=== PATIENT | female | born 1995 | race Caucasian/White ===

== ENCOUNTER → 2016-12-05 | Outpatient (CLI) | payer BC ==
[~2016-12-05] MED LIST: CLX20 PO; PRENTAB26 PO
== END | disposition home or self-care (01) ==
LOC: C.PAPS 11:46
PROVIDERS: ATTEND Obstetrics & Gynecology
DX: Z11.3 Encounter for screening for infections with a predominantly sexual mode of transmission (principal)

== ENCOUNTER → 2016-12-05 | Outpatient (CLI) | payer BC, OTHER ==
[2016-12-09 01:33] LABS: CHLAMYDIA TRACH RNA*** NOT DETECTED (NOT DETECTED); GC (NEIS GONORRHOEAE)RNA** NOT DETECTED (NOT DETECTED)
== END | disposition home or self-care (01) ==
LOC: C.LABSPEC 12:54
PROVIDERS: ATTEND Obstetrics & Gynecology
DX: Z11.3 Encounter for screening for infections with a predominantly sexual mode of transmission (principal)

== ENCOUNTER 2021-01-06 04:17 | Inpatient (IN) ==
[2021-01-06] MEDS ORDERED: LACTATED RINGER'S 1,000 ML IV PRN (04:52)
[2021-01-06] MEDS ORDERED: OXYTOCIN 30 UNITS/500 ML BAG IV PRN ×2 (04:52→05:40)
[2021-01-06] MEDS ORDERED: SODIUM CHLORIDE 0.9% INJ 10 ML VIAL ONE (05:13)
[2021-01-06] MEDS ORDERED: BUPIVACAINE 0.25% 30 ML VIAL ONE (05:13)
[2021-01-06] MEDS ORDERED: fentaNYL 2MCG/ML ROPIVACAINE 1.25MG/ML 100 ML BAG EPI ONE (05:13)
[2021-01-06] MEDS ORDERED: fentaNYL citrate 100 MCG/2 ML VIAL ONE (05:13)
[2021-01-06] MEDS ORDERED: ePHEDrine sulfate 50 MG/ML AMP ONE (05:13)
[2021-01-06] MEDS ORDERED: ERYTHROMYCIN OP OINT 1 GM PKT ONE (05:14)
[2021-01-06] MEDS ORDERED: oxyCODONE/ACETAMINOPHEN 5mg/325mg TAB PO PRN (05:40)
[2021-01-06] MEDS ORDERED: bisacodyL 10 MG SUPP PR PRN (05:40)
[2021-01-06] MEDS ORDERED: BENZOCAINE 20% AER SPR 82.5 GM CAN EXT PRN (05:40)
[2021-01-06] MEDS ORDERED: SUPERCREAM 0.870% 15 GM JAR EXT PRN (05:40)
[2021-01-06] MEDS ORDERED: ACETAMINOPHEN 325 MG TAB PO PRN (05:40)
[2021-01-06] MEDS ORDERED: HYDROCORTISONE ACETATE 25 MG SUPP PR PRN (05:40)
[2021-01-06] MEDS ORDERED: DIPHTHERIA/TETANUS/PERTUSSIS 0.5 ML SYR/VIAL IM ONE (05:40)
--- NOTE | 2021-01-06 06:29 | Delivery Summary ---
Vaginal Delivery Summary Date of Service January 06, 2021 Patient is a 25-year-old 3 para 1-0-1-1 white female who presented at 40 weeks in active labor. On arrival in labor and delivery her cervix was 7 cm dilated with bulging membranes. Membranes were ruptured for moderate meconium stained fluid. She progressed quickly to full dilation and pushed effectively over an intact perineum to deliver a viable female infant in the vertex presentation. There was a tight nuchal cord which was cut and clamped prior to delivering the rest of the infant. The rest of the delivered easily and was placed on the mother's abdomen for further attention and drying. At the nasopharynx were suctioned after delivery of the . Placenta was expressed intact with a three-vessel cord after obtaining cord blood sample. Bilateral abrasions on the labia were not bleeding and therefore not repaired. bleeding was controlled with dilute Pitocin. Estimated blood loss is 250 cc. Mother and infant were doing well after delivery. This was an unmedicated . Vaginal Delivery Summary [facility] Vaginal Delivery Charge Vaginal Delivery Codes: 19599 global code for the antepartum, delivery, and post- Delivery Type Details: [facility]
[2021-01-06 06:32] LABS: Hemoglobin 12.2 g/dL (12.0-16.0); Mean Corpuscular Hemoglobin 29.9 pg (25-34); Mean Corpuscular Hgb Conc 33.9 g/dL (32-36); Mean Corpuscular Volume 88.2 fL (80-100); Mean Platelet Volume 10.6 fL (7.4-10.4); Platelet Count 188 K/uL (130-400); RDW Coefficient of Variation 13.4 % (11.5-14.5); RDW Standard Deviation 43.5 fL (36.4-46.3); Red Blood Count 4.08 M/uL (4.2-5.4); White Blood Count 12.99 K/uL (4.8-10.8)
[2021-01-06] MEDS: IBUPROFEN 600 MG TAB PO PRN ×4 (06:46→21:16)
[2021-01-06] MEDS: PRENATAL VITAMIN 1 TAB PO SCH (07:56)
[2021-01-06] MEDS: DOCUSATE SODIUM 100 MG CAP PO SCH ×2 (07:56→21:15)
[2021-01-07] MEDS: IBUPROFEN 600 MG TAB PO PRN ×3 (01:25→08:47)
[2021-01-07 06:22] LABS: Hematocrit (blood only) 33.5 % (37-47); Hemoglobin 11.2 g/dL (12.0-16.0); Mean Corpuscular Hemoglobin 29.7 pg (25-34); Mean Corpuscular Hgb Conc 33.4 g/dL (32-36); Mean Corpuscular Volume 88.9 fL (80-100); Mean Platelet Volume 10.5 fL (7.4-10.4); Platelet Count 205 K/uL (130-400); RDW Coefficient of Variation 13.6 % (11.5-14.5); RDW Standard Deviation 43.9 fL (36.4-46.3); Red Blood Count 3.77 M/uL (4.2-5.4)
--- NOTE | 2021-01-07 06:42 | Obstetrical Progress Note ---
Date of Service <Dhaval Boone MD - Last Filed: 01/07/21 07:12> January 07, 2021 Assessment & Plan <Dhaval Boone MD - Last Filed: 01/07/21 07:12> (1) state: 25 y/o s/p at 40w0d on 0501/06/21, PPD1. Mild bleeding controlled w/ dilute pitocin. ebl 250cc. O pos. rubella immune. - vitals reviewed, stable - meeting milestones - w/o issues - routine care - dispo home today. instructions reviewed (by attending) w/ patient - 6 wk f/u Subjective <Dhaval Boone MD - Last Filed: 01/07/21 07:12> Ambulation: ambulating normally Voiding: no voiding problems Passing Gas:: Yes Diet Tolerance:: regular diet Lochia:: Moderate Feeding Type:: breast feeding (no issues) Current Pain Level(1-10): 4 4/10 cramping, tolerable. Prefers home today. Review of Systems Denies fever, chills, sweats Denies shortness of breath, chest pain, palpitations. Denies breast pain. Denies dysuria. Denies headache or changes in vision. Denies nausea/vomiting. Denies numbness, tingling, weakness. Mood is ok. No calf pain. Physical Exam <Dhaval Boone MD - Last Filed: 01/07/21 07:12> General: Alert, oriented. No acute distress. Cardiac: Regular rate and rhythm, no murmurs/rubs/gallops. Respiratory: Clear to auscultation bilaterally, no wheezes/rales/rhonchi. No respiratory distress. Abdomen: , soft, nontender. Uterus: Uterine fundus firm, palpable 1cm below umbilicus. Lower Extremities: No lower extremity edema or swelling. Puffy appearance. No deep calf pain. Damián's negative bilaterally. Results & Data ([facility]) <Dhaval Boone MD - Last Filed: 01/07/21 07:12> Vital Signs (Past 12 Hours) Vital Signs Temp Pulse Resp BP Pulse Ox 01/07/21 03:45 36.9 C 86 16 106/68 97 01/06/21 23:15 36.9 C 79 17 117/75 97 01/06/21 19:00 36.4 C L 85 20 111/78 Medications Administered <Judith Cartagena MD - Last Filed: 01/07/21 07:12> Co-Signing Physician Notes Resident Physician Supervision Note: I interviewed and examined the patient. Discussed with Dr. Boone and agree with findings and plan as documented in the note. Any exceptions or clarifications are listed here: None Documented By: Judith Cartagena MD, FACOG Resident Activity Tracking <Dhaval Boone MD - Last Filed: 01/07/21 07:12> Resident Involvement: Resident Care Provided Care Provided: OB Delivery
[2021-01-07] MEDS: DOCUSATE SODIUM 100 MG CAP PO SCH (08:47)
[2021-01-07] MEDS: PRENATAL VITAMIN 1 TAB PO SCH (08:47)
[2021-01-07] MEDS ORDERED: bisacodyL 5 MG TABEC PO SCH (20:00)
== END 2021-01-07 13:02 | disposition home or self-care (01) | DRG 807 ==
LOC: OPB 04:17 → 4S1 04:19 → 4S2 09:12

== ENCOUNTER 2022-10-09 21:48 | Inpatient (IN) ==
[2022-10-09] MEDS ORDERED: LIDOCAINE 1% LOCAL 20 ML VIAL INFIL PRN (22:07)
[2022-10-09] MEDS ORDERED: LACTATED RINGER'S 1,000 ML IV PRN (22:07)
[2022-10-09] MEDS ORDERED: OXYTOCIN 30 UNITS/500 ML BAG IV PRN (22:07)
[2022-10-09 22:30] LABS: Hematocrit (blood only) 36.5 % (34.1-44.9); Hemoglobin 12.3 g/dl (12.0-16.0); Mean Corpuscular Hemoglobin 28.8 pg (25.0-34.0); Mean Corpuscular Hgb Conc 33.7 g/dL (32.0-36.0); Mean Corpuscular Volume 85.5 fL (80.0-100.0); Mean Platelet Volume 11.1 fL (9.4-12.3); Platelet Count 231 K/uL (130-400); RDW Coefficient of Variation 13.5 % (11.5-14.5); RDW Standard Deviation 42.1 fL (36.4-46.3); Red Blood Count 4.27 M/uL (3.93-5.22); White Blood Count 12.61 K/ul (4.8-10.8)
--- NOTE | 2022-10-09 23:09 | History & Physical Report ---
Date of Service October 09, 2022 Assessment & Plan (1) Encounter for supervision of normal in multigravida: Plan: IUP at term in labor AROM for clear fluid planning unmedicated delivery anticipate vaginal Admission and Anticipated Discharge Date Admission Date: October 09, 2022 History of Present Illness Primary Care Provider: NO PCP Patient is a 27 yo female EDC 10/08/22 who presents with regular contractions. (+) bloody show, (-)SPROM. complicated by GDM- diet controlled. GBS-negative Allergies Allergy/AdvReac Type Severity Reaction Status Date / Time No Known Drug Allergies Allergy Unknown Verified 10/09/22 22:20 Home Medications Medication Instructions Recorded Confirmed Type prenat.vits,tin,aby-ouiv-ccpxj 1 tab PO DAILY 06/05/20 10/09/22 History magnesium PO 02/16/22 09/20/22 History Patient History Medical History Anxiety Cervical cancer screening Chicken pox Depression Depression Encounter for routine pelvic examination History of allergy History of drug overdose exam Screening examination for STD (sexually transmitted disease) Vaginal discharge Surgical History No history of previous surgery Family History Family/Other Neurofibromatosis Aunt Ganglioneuroma Mother Hypertension Heart block Other Diabetes Thyroid disease Twin Denies family history of Ovarian cancer Breast cancer Colorectal cancer Social History Smoking Status: Never smoker Second Hand Exposure: No; Hx Alcohol Use: No Hx Substance Use: No Preferred Language: Peruvian Communication Ability: Effective Theatre Director Required: No Beliefs That Will Affect Care: None marital status: marital status details: Travis Vieira(27) [phone] Current Living Situation: Spouse Current Living Situation Comment: and 2 daughters current occupational status: employed current occupation: [employer] Other Information That Helps Us Care for You: No Feels Safe at Home: Yes Safety Concerns: Feels Safe At This Time Assistive Devices: Glasses Review of Systems All systems reviewed & are unremarkable except as noted in HPI & below Physical Exam Constitutional: WD/WN, vitals as above Psychiatric: A+Ox3, euthymic affect Genitourinary: Manual OB Exam: + cervical dilation 7 cm, + cervical effacement 80%, + station -2 and + amniotic fluid (AROM clear fluid) clear OB Exam Monitor Tracing: + external FHT monitor used, + external uterine monitor used, + category I and + normal FHT variability Results & Data ([facility]) Vital Signs (Past 12 Hours) Vital Signs Temp Pulse Resp BP 10/09/22 22:21 97.7 F 75 18 136/76 10/09/22 22:02 97.7 F 75 18 136/76 Coding Level of Care Code None Diagnoses Encounter for supervision of normal in multigravida Z34.80
[2022-10-09 23:58] LABS: Amphetamines+Metham, Urine Neg (Neg); Barbiturates, Urine Neg (Neg); Benzodiazepine, Urine Neg (Neg); Cocaine, Urine Neg (Neg); MDMA (Ecstacy), Urine Neg (Neg); Methadone, Urine Neg (Neg); Opiate, Urine Neg (Neg); Phencyclidine, Urine Neg (Neg)
[2022-10-10] MEDS ORDERED: HYDROCORTISONE ACETATE 25 MG SUPP PR PRN (01:02)
[2022-10-10] MEDS ORDERED: OXYTOCIN 10 UNITS/ML 10ML VIAL IM ONE (01:02)
[2022-10-10] MEDS ORDERED: bisacodyL 10 MG SUPP PR PRN (01:02)
[2022-10-10] MEDS ORDERED: ACETAMINOPHEN 325 MG TAB PO PRN (01:02)
[2022-10-10] MEDS ORDERED: DIPHTHERIA/TETANUS/PERTUSSIS 0.5 ML SYR/VIAL IM ONE (01:02)
[2022-10-10] MEDS ORDERED: oxyCODONE/ACETAMINOPHEN 5mg/325mg TAB PO PRN (01:02)
[2022-10-10] MEDS ORDERED: BENZOCAINE 20% AER SPR 82.5 GM CAN EXT PRN (01:02)
[2022-10-10] MEDS ORDERED: OXYTOCIN 30 UNITS/500 ML BAG IV PRN (01:02)
--- NOTE | 2022-10-10 01:07 | Delivery Summary ---
Vaginal Delivery Summary Date of Service October 10, 2022 Vaginal Delivery Summary [facility] Patient is a 27-year-old 3 para 2-0-0-2 female who presented in active labor. Membranes were ruptured for clear fluid. She progressed to full dilation with the urge to push. She pushed effectively over intact perineum for delivery of a viable male . After the head was delivered there was a mild shoulder dystocia relieved with hyperflexion of the hips. At this point the rest of the infant delivered easily and was placed on the mother's abdomen for further attention and drying. After almost 2 minutes the cord was clamped and cut. After stimulation the infant was vigorous crying and moving all 4 limbs. The placenta was expressed intact with a three-vessel cord after obtaining cord blood. Perineum was intact with a superficial abrasion on the left labia minora. bleeding was controlled with fundal massage and IM Pitocin. Estimated blood loss was 200 cc. This was an unmedicated . Mother and were doing well after delivery. [facility] Vaginal Delivery Charge Delivery Type Details: [facility]
[2022-10-10] MEDS: IBUPROFEN 600 MG TAB PO PRN ×5 (01:31→23:59)
[2022-10-10] MEDS: DOCUSATE SODIUM 100 MG CAP PO SCH ×2 (07:40→21:28)
[2022-10-10] MEDS: PRENATAL VITAMIN 1 TAB PO SCH (07:40)
--- NOTE | 2022-10-11 07:06 | Obstetrical Progress Note ---
Date of Service <Clare Ribeiro MD - Last Filed: 10/11/22 08:13> October 11, 2022 Assessment & Plan <Clare Ribeiro MD - Last Filed: 10/11/22 08:13> (1) care following vaginal delivery: 27 y/o female with complicated by diet controlled GDM now PPD1. GBS-negative. Satisfactory post- progress. Encourage ambulation. Tolerating PO. <Sanchez Ferrer MD - Last Filed: 10/12/22 08:45> (1) care following vaginal delivery: Subjective <Clare Ribeiro MD - Last Filed: 10/11/22 08:13> Ambulation: ambulating normally Voiding: no voiding problems Passing Gas:: Yes Diet Tolerance:: regular diet Lochia:: Small Feeding Type:: breast feeding no f/c/CP/SOB/calf pain Physical Exam <Clare Ribeiro MD - Last Filed: 10/11/22 08:13> Constitutional WD/WN, vitals as above Respiratory normal respiratory effort, lungs clear to auscultation Cardiovascular RRR, no murmur, no edema Extremities: no calf tenderness Psychiatric A+Ox3, euthymic affect Genitourinary OB Exam Abdomen: + fundal height (at the level of the umbilicus) Fundus: + firm Results & Data ([facility]) <Clare Ribeiro MD - Last Filed: 10/11/22 08:13> Vital Signs (Past 12 Hours) Vital Signs Temp Pulse Resp BP BP Pulse Ox O2 Del Method 10/10/22 23:56 36.6 C 63 18 113/73 96 Room Air 10/10/22 19:50 36.6 C 71 18 129/84 99 Room Air <Sanchez Ferrer MD - Last Filed: 10/12/22 08:45> Co-Signing Physician Notes patient seen and evaluated with resident and agree with the above findings and plan. Routine care Resident Activity Tracking <Clare Ribeiro MD - Last Filed: 10/11/22 08:13> Resident Involvement: Resident Care Provided Care Provided: OB Delivery
[2022-10-11 07:10] LABS: Hematocrit (blood only) 33.9 % (34.1-44.9); Hemoglobin 11.3 g/dl (12.0-16.0); Mean Corpuscular Hemoglobin 28.6 pg (25.0-34.0); Mean Corpuscular Hgb Conc 33.3 g/dL (32.0-36.0); Mean Corpuscular Volume 85.8 fL (80.0-100.0); Platelet Count 221 K/uL (130-400); RDW Coefficient of Variation 13.6 % (11.5-14.5); RDW Standard Deviation 42.3 fL (36.4-46.3); Red Blood Count 3.95 M/uL (3.93-5.22); White Blood Count 11.95 K/ul (4.8-10.8)
[2022-10-11] MEDS: PRENATAL VITAMIN 1 TAB PO SCH (08:12)
[2022-10-11] MEDS: DOCUSATE SODIUM 100 MG CAP PO SCH (08:12)
[2022-10-11] MEDS: IBUPROFEN 600 MG TAB PO PRN (08:12)
[2022-10-11] MEDS ORDERED: bisacodyL 5 MG TABEC PO SCH (20:00)
[2022-10-12 19:36] LABS: Marijuana Quant, GCMS Urine 906 ng/mL (<5)
== END 2022-10-11 11:42 | disposition home or self-care (01) | DRG 807 ==
LOC: OPB 21:48 → 4S1 21:49 → 4E2 10-10 03:20